=== PATIENT | male | born 1985 | race Caucasian/White ===

== ENCOUNTER 2016-09-05 17:33 | Emergency (ER) | payer OTHER ==
[~2016-09-05] VITALS: Ht 175.3 cm; Wt 60.0 kg
[2016-09-05 19:59] LABS: EOSINOPHIL (%) 7.3 % (0-5); EOSINOPHIL COUNT 0.5 K/uL (0-0.3); HEMATOCRIT 44.7 % (38.0-50.0); IMMATURE GRANULOCYTE (%) 0.1 % (0.0-0.7); INSTRUMENT ABS NEUTROPHIL CT 4.9 K/uL; LYMPHOCYTE COUNT 1.2 K/uL (1.0-2.8); MCH 33.1 PG (29.0-34.0); MCHC 34.7 G/DL (30.0-36.0); MCV 95.5 FL (86-99); MEAN PLAT.VOLUME 10.2 uM^3 (9.0-12.4); MONOCYTE (%) 5.2 % (3-12); MONOCYTE COUNT 0.4 K/uL (0-0.8); NEUTROPHIL (%) 69.5 % (45-76); NEUTROPHIL COUNT 4.9 K/uL (1.8-6.4); PLATELET COUNT 213 K/uL (156-360); RBC DIS.WIDTH-CV 12.7 % (11.8-14.6); RBC DIS.WIDTH-SD 45.1 % (39-53); RED BLOOD COUNT 4.68 M/uL (4.00-5.50); WHITE BLOOD COUNT 7.1 K/uL (4.1-10.2)
[2016-09-05 20:11] LABS: CHLORIDE 106 mEq/L (99-109); POTASSIUM 3.7 mEq/L (3.7-5.4); SODIUM 141 mEq/L (136-147)
[2016-09-05 20:13] LABS: GLUCOSE 103 mg/dL (70-99)
[2016-09-05 20:14] LABS: ANION GAP 10 MEQ/L (2-14)
[2016-09-05 20:15] LABS: TOTAL BILIRUBIN 0.2 mg/dL (0.0-1.0)
[2016-09-05 20:16] LABS: ALKALINE PHOSPHATASE 74 IU/L (3-129)
[2016-09-05 20:17] LABS: GFR ESTIMATE (CALCULATED) > 59 mL/min/
[2016-09-05 20:18] LABS: UREA NITROGEN (BUN) 12 mg/dL (9-23)
[2016-09-05] MEDS ORDERED: PREDNISONE50 MG PO (20:58)
[2016-09-05 21:12] VITALS: BP 156/59
== END 2016-09-05 21:22 | disposition home or self-care (01) ==
LOC: EME 17:33
PROVIDERS: Emergency Medicine
DX: L30.9 Dermatitis, unspecified (principal); L40.0 Psoriasis vulgaris; F79 Unspecified intellectual disabilities; R45.4 Irritability and anger
CPT/HCPCS: 80053; 85025; 99281; 99284